=== PATIENT | female | born 1935 | race Caucasian/White ===

== ENCOUNTER 2016-11-07 18:04 | Inpatient (IN) | payer MEDICARE, OTHER ==
[~2016-11-07] VITALS: Ht 170.2 cm; Wt 62.3 kg
[2016-11-07 19:12] LABS: HEMOGLOBIN 12.2 gm/dl (12.3-15.3); RED BLOOD COUNT 4.19 M/UL (4.00-5.10); WHITE BLOOD COUNT 18.9 K/UL (4.5-11.0)
[2016-11-07] MEDS ORDERED: LASIX20 MG PO (23:51)
[2016-11-07] MEDS ORDERED: NAMENDA10 MG PO (23:51)
[2016-11-07] MEDS ORDERED: COREG 12.5MG12.5 MG PO (23:53)
[2016-11-07] MEDS ORDERED: REMERON 15 MG T15 MG PO (23:53)
[2016-11-07] MEDS ORDERED: DIGOXIN125 MCG PO (23:54)
[2016-11-07] MEDS ORDERED: RISPERDAL 1MG TA1 MG PO (23:55)
[2016-11-07] MEDS ORDERED: RANITIDINE HCL300 MG PO (23:56)
[2016-11-07] MEDS ORDERED: LEVOTHYROXINE88 MCG PO (23:56)
[2016-11-07] MEDS ORDERED: CRESTOR10 MG PO (23:57)
[2016-11-07] MEDS ORDERED: ALPRAZOLAM0.5 MG PO (23:57)
[2016-11-07] MEDS ORDERED: METFORMIN HCL1000 M1 PO (23:57)
[2016-11-08 05:23] LABS: HEMOGLOBIN 11.4 gm/dl (12.3-15.3); RED BLOOD COUNT 3.88 M/UL (4.00-5.10); WHITE BLOOD COUNT 16.3 K/UL (4.5-11.0)
[2016-11-09 03:55] LABS: HEMOGLOBIN 9.8 gm/dl (12.3-15.3); RED BLOOD COUNT 3.44 M/UL (4.00-5.10); WHITE BLOOD COUNT 9.7 K/UL (4.5-11.0)
[2016-11-10 05:15] LABS: RED BLOOD COUNT 3.5 M/UL (4.00-5.10); WHITE BLOOD COUNT 7.3 K/UL (4.5-11.0)
[2016-11-11 06:23] LABS: HEMOGLOBIN 10.5 gm/dl (12.3-15.3); RED BLOOD COUNT 3.67 M/UL (4.00-5.10); WHITE BLOOD COUNT 6.1 K/UL (4.5-11.0)
[2016-11-12 06:30] LABS: HEMOGLOBIN 10.2 gm/dl (12.3-15.3); RED BLOOD COUNT 3.56 M/UL (4.00-5.10); WHITE BLOOD COUNT 7.4 K/UL (4.5-11.0)
[2016-11-14 04:38] LABS: HEMOGLOBIN 9.4 gm/dl (12.3-15.3); RED BLOOD COUNT 3.27 M/UL (4.00-5.10)
[2016-11-14 04:44] LABS: WHITE BLOOD COUNT 5.5 K/UL (4.5-11.0)
[2016-11-14] MEDS ORDERED: NEPRO CARB ST1000 ML PO (12:47)
[2016-11-14] MEDS ORDERED: MEGACE400 MG/10 PO (12:48)
== END 2016-11-14 14:00 | DRG 682 ==
LOC: ER1 18:04 → MED SURG 4 21:25 → PROG CARE 21:25 → ZEROF 21:25 → PROG CARE 23:40 → MED SURG 4 11-10 16:22
PROVIDERS: Emergency Medicine; Hospitalist; Internal Medicine; Internal Medicine Hematology & Oncology; Preventive Medicine Occupational Medicine; ADMIT Internal Medicine
DX: N17.9 Acute kidney failure, unspecified (principal); G92 Toxic encephalopathy; I13.0 Hypertensive heart and chronic kidney disease with heart failure and stage 1 through stage 4 chronic kidney disease, or unspecified chronic kidney disease; I50.22 Chronic systolic (congestive) heart failure; I47.2 Ventricular tachycardia; E44.0 Moderate protein-calorie malnutrition; E87.0 Hyperosmolality and hypernatremia; E11.22 Type 2 diabetes mellitus with diabetic chronic kidney disease; N18.3 Chronic kidney disease, stage 3 (moderate); Z79.84 Long term (current) use of oral hypoglycemic drugs; E03.9 Hypothyroidism, unspecified; E78.5 Hyperlipidemia, unspecified; G30.9 Alzheimer's disease, unspecified; F02.80 Dementia in other diseases classified elsewhere, unspecified severity, without behavioral disturbance, psychotic disturbance, mood disturbance, and anxiety; R80.3 Bence Jones proteinuria; T46.0X5A Adverse effect of cardiac-stimulant glycosides and drugs of similar action, initial encounter; D69.6 Thrombocytopenia, unspecified; L89.152 Pressure ulcer of sacral region, stage 2; R13.10 Dysphagia, unspecified
CPT/HCPCS: ECHO; 36415; 51702; 70450; 71010; 73502; 73560; 80048; 80053; 80162; 80307; 81001; 82150; 82550; 82553; 82570; 82803; 82962; 83605; 83615; 83690; 83735; 83874; 83880; 83883; 84132; 84165; 84166; 84300; 84443; 84484; 85025; 85027; 85610; 85730; 86335; 87040; 87086; 92526; 92610; 93005; 93306; 96361; 96374; 97110; 97116; 97530; 97535; 99291; J1650; J2543; J7030; J7050